=== PATIENT | female | born 1980 | race Caucasian/White ===

== ENCOUNTER 2016-11-07 11:30 | Inpatient (IN) | payer OTHER ==
[~2016-11-07] VITALS: Ht 162.6 cm; Wt 82.0 kg
[2016-11-07 13:11] LABS: EOSINOPHIL (%) 1.6 % (0-5); EOSINOPHIL COUNT 0.1 K/uL (0-0.3); HEMATOCRIT 39.8 % (36.0-46.0); IMMATURE GRANULOCYTE (%) 0.6 % (0.0-0.7); IMMATURE GRANULOCYTE COUNT 0.1 K/uL; INSTRUMENT ABS NEUTROPHIL CT 4.2 K/uL; LYMPHOCYTE COUNT 2.9 K/uL (1.0-2.8); MCH 28.6 PG (29.0-34.0); MCHC 31.9 G/DL (30.0-36.0); MCV 89.6 FL (83-99); MEAN PLAT.VOLUME 9.6 uM^3 (9.5-12.4); MONOCYTE (%) 9.3 % (3-12); MONOCYTE COUNT 0.7 K/uL (0-0.8); NEUTROPHIL COUNT 4.2 K/uL (1.8-6.4); PLATELET COUNT 312 K/uL (156-360); RBC DIS.WIDTH-CV 12.7 % (11.8-14.6); RBC DIS.WIDTH-SD 41.9 % (39-53); RED BLOOD COUNT 4.44 M/uL (3.80-5.20)
[2016-11-07 13:20] LABS: CHLORIDE 105 mEq/L (99-109); POTASSIUM 4.4 mEq/L (3.7-5.4); SODIUM 140 mEq/L (136-147)
[2016-11-07 13:22] LABS: GLUCOSE 106 mg/dL (70-99)
[2016-11-07 13:23] LABS: ANION GAP 9 MEQ/L (2-14)
[2016-11-07 13:24] LABS: TOTAL BILIRUBIN 0.2 mg/dL (0.0-1.0)
[2016-11-07 13:25] LABS: ALKALINE PHOSPHATASE 63 IU/L (3-129)
[2016-11-07 13:26] LABS: GFR ESTIMATE (CALCULATED) > 59 mL/min/
[2016-11-07 13:27] LABS: UREA NITROGEN (BUN) 22 mg/dL (9-23)
[2016-11-07 13:29] LABS: D-DIMER ELISA 0.41 mg/L FEU (< 0.57)
[2016-11-07 13:31] LABS: TROP-I INTERPRETATION NEGATIVE; TROPONIN-I < 0.01 ng/mL (0.0-0.30)
[2016-11-07 13:34] LABS: QUANTITATIVE HCG < 4.0 MIU/ML
[2016-11-07 15:42] LABS: ADD MIUA? YES; BILIRUBIN NEGATIVE; BLOOD NEGATIVE; COLOR YELLOW ((YELLOW)); GLUCOSE (STRIP) NEGATIVE; KETONES NEGATIVE; LEUKOCYTES SMALL; NITRITE NEGATIVE; PROTEIN (STRIP) 30; SPECIFIC GRAVITY 1.025 (1.000-1.030); UROBILINOGEN 0.2 MG/DL (0.2-1.0)
[2016-11-07] MEDS ORDERED: NUEDEXTA 20-101 EACH PO (15:48)
[2016-11-07] MEDS ORDERED: KLONOPIN1 MG PO ×2 (15:48→15:49)
[2016-11-07] MEDS ORDERED: MIRTAZAPINE15 MG PO (15:48)
[2016-11-07 15:49] LABS: BACTERIA 2+ /HPF; CALCIUM OXALATE CRYSTALS 4+ /HPF; EPITHELIAL CELLS 4+ /HPF; MUCUS TRACE /LPF; RED BLOOD CELLS 0-5 /HPF (0-5); UCUL ADDED? YES
[2016-11-07] MEDS ORDERED: NEURONTIN300 MG PO (15:49)
[2016-11-07] MEDS ORDERED: GABAPENTIN300 MG PO (15:49)
[2016-11-07] MEDS ORDERED: HYDROXYZINE HCL50 MG PO (15:49)
[2016-11-07] MEDS ORDERED: GABAPENTIN400 MG PO (15:49)
[2016-11-07] MEDS ORDERED: WELLBUTRIN XL150 MG PO (15:50)
[2016-11-07] MEDS ORDERED: LOVENOX30 MG/0.3 SC (15:51)
[2016-11-07] MEDS ORDERED: CYANOCOBAL1000 MCG/2 IM (15:51)
[2016-11-07] MEDS ORDERED: DIFLUCAN100 MG PO (15:52)
[2016-11-07] MEDS ORDERED: [UNRECOGNIZED DRUG - CODE] PO (15:52)
[2016-11-07] MEDS ORDERED: QUESTRAN POWDE378 GM PO (15:53)
[2016-11-07] MEDS ORDERED: PERCOCET 5/31 TABLET PO (15:53)
[2016-11-07] MEDS ORDERED: SKELAXIN800 MG PO (15:53)
[2016-11-07] MEDS ORDERED: AMPHOTERICIN PO (15:54)
[2016-11-07] MEDS ORDERED: DIFICID200 MG PO (15:54)
[2016-11-07] MEDS ORDERED: ARMOUR THYROID60 M1 PO (15:54)
[2016-11-07] MEDS ORDERED: PROAIR HFA8.5 GM IH (15:54)
[2016-11-07] MEDS ORDERED: MEPRON750 MG/5 M PO (15:55)
[2016-11-07 18:45] VITALS: BP 147/80
[2016-11-07 20:33] LABS: INTERNAL CONTROL VALID? YES
[2016-11-07 21:06] LABS: C DIFF TOXIN POSITIVE (NEGATIVE)
[2016-11-07 21:10] LABS: PROBE CHECK PASS
[2016-11-08] VITALS: BP 125/70
[2016-11-08 07:06] LABS: ANION GAP 10 MEQ/L (2-14); CHLORIDE 109 MEQ/L (99-109); GFR ESTIMATE (CALCULATED) > 59 mL/min/; GLUCOSE 82 mg/dL (70-99); POTASSIUM 3.8 MEQ/L (3.7-5.4); SAMPLE HEMOLYSIS CHECK 0; SAMPLE ICTERIC CHECK 0; SAMPLE LIPEMIA CHECK 0; SODIUM 141 MEQ/L (136-147); UREA NITROGEN (BUN) 9 mg/dL (9-23)
[2016-11-08 09:02] VITALS: BP 119/70
[2016-11-08 09:03] VITALS: BP 119/73
[2016-11-08 09:04] VITALS: BP 125/86
[2016-11-08 11:56] VITALS: BP 119/69
[2016-11-08 14:46] VITALS: BP 133/84
[2016-11-08 18:07] LABS: INTERNAL CONTROL VALID? YES
[2016-11-09 01:07] VITALS: BP 120/70
[2016-11-09 06:46] LABS: EOSINOPHIL (%) 3.5 % (0-5); EOSINOPHIL COUNT 0.2 K/uL (0-0.3); IMMATURE GRANULOCYTE (%) 0.5 % (0.0-0.7); INSTRUMENT ABS NEUTROPHIL CT 2.4 K/uL; LYMPHOCYTE COUNT 2.3 K/uL (1.0-2.8); MCH 28.4 PG (29.0-34.0); MCHC 30.6 G/DL (30.0-36.0); MCV 92.8 FL (83-99); MEAN PLAT.VOLUME 9.8 uM^3 (9.5-12.4); MONOCYTE (%) 10.5 % (3-12); MONOCYTE COUNT 0.6 K/uL (0-0.8); NEUTROPHIL (%) 42.8 % (45-76); NEUTROPHIL COUNT 2.4 K/uL (1.8-6.4); PLATELET COUNT 232 K/uL (156-360); RBC DIS.WIDTH-SD 44.1 % (39-53); RED BLOOD COUNT 3.88 M/uL (3.80-5.20); WHITE BLOOD COUNT 5.5 K/uL (4.1-10.2)
[2016-11-09 07:09] LABS: ANION GAP 8 MEQ/L (2-14); CHLORIDE 110 MEQ/L (99-109); GFR ESTIMATE (CALCULATED) > 59 mL/min/; GLUCOSE 76 mg/dL (70-99); MAGNESIUM 1.9 mg/dl (1.3-2.7); POTASSIUM 4.1 MEQ/L (3.7-5.4); SAMPLE HEMOLYSIS CHECK 0; SAMPLE ICTERIC CHECK 0; SAMPLE LIPEMIA CHECK 0; SODIUM 144 MEQ/L (136-147); UREA NITROGEN (BUN) 6 mg/dL (9-23)
[2016-11-09 07:48] VITALS: BP 116/67
[2016-11-09 15:20] VITALS: BP 127/76
[2016-11-09 22:54] VITALS: BP 116/66
[2016-11-10 06:36] LABS: HEMATOCRIT 34.8 % (36.0-46.0); MCH 29.3 PG (29.0-34.0); MCHC 32.8 G/DL (30.0-36.0); MCV 89.5 FL (83-99); MEAN PLAT.VOLUME 9.8 uM^3 (9.5-12.4); PLATELET COUNT 245 K/uL (156-360); RBC DIS.WIDTH-CV 12.9 % (11.8-14.6); RBC DIS.WIDTH-SD 42.4 % (39-53); RED BLOOD COUNT 3.89 M/uL (3.80-5.20); WHITE BLOOD COUNT 6.3 K/uL (4.1-10.2)
[2016-11-10 07:02] LABS: ANION GAP 9 MEQ/L (2-14); CHLORIDE 107 MEQ/L (99-109); GFR ESTIMATE (CALCULATED) > 59 mL/min/; GLUCOSE 81 mg/dL (70-99); POTASSIUM 3.6 MEQ/L (3.7-5.4); SAMPLE HEMOLYSIS CHECK 0; SAMPLE ICTERIC CHECK 0; SAMPLE LIPEMIA CHECK 0; SODIUM 141 MEQ/L (136-147); UREA NITROGEN (BUN) 7 mg/dL (9-23)
[2016-11-10 07:25] VITALS: BP 121/70
[2016-11-10 15:45] VITALS: BP 117/68
[2016-11-10 23:10] VITALS: BP 117/66
[2016-11-11 05:59] LABS: EOSINOPHIL (%) 2.7 % (0-5); EOSINOPHIL COUNT 0.2 K/uL (0-0.3); HEMATOCRIT 36.5 % (36.0-46.0); IMMATURE GRANULOCYTE (%) 0.4 % (0.0-0.7); INSTRUMENT ABS NEUTROPHIL CT 3.7 K/uL; LYMPHOCYTE COUNT 2.6 K/uL (1.0-2.8); MCH 29.8 PG (29.0-34.0); MCHC 33.2 G/DL (30.0-36.0); MCV 89.9 FL (83-99); MEAN PLAT.VOLUME 10.2 uM^3 (9.5-12.4); MONOCYTE (%) 10.2 % (3-12); MONOCYTE COUNT 0.8 K/uL (0-0.8); NEUTROPHIL (%) 50.6 % (45-76); NEUTROPHIL COUNT 3.7 K/uL (1.8-6.4); PLATELET COUNT 250 K/uL (156-360); RBC DIS.WIDTH-CV 12.9 % (11.8-14.6); RBC DIS.WIDTH-SD 42.3 % (39-53); RED BLOOD COUNT 4.06 M/uL (3.80-5.20); WHITE BLOOD COUNT 7.4 K/uL (4.1-10.2)
[2016-11-11 06:21] LABS: ANION GAP 13 MEQ/L (2-14); CHLORIDE 106 MEQ/L (99-109); GFR ESTIMATE (CALCULATED) > 59 mL/min/; GLUCOSE 79 mg/dL (70-99); POTASSIUM 3.9 MEQ/L (3.7-5.4); SAMPLE HEMOLYSIS CHECK 0; SAMPLE ICTERIC CHECK 0; SAMPLE LIPEMIA CHECK 0; SODIUM 142 MEQ/L (136-147); UREA NITROGEN (BUN) 13 mg/dL (9-23)
[2016-11-11 07:50] VITALS: BP 112/60
[2016-11-11 16:06] VITALS: BP 100/60
[2016-11-11 22:35] VITALS: BP 117/62
[2016-11-12 07:26] VITALS: BP 116/60
[2016-11-12] MEDS ORDERED: FLORASTOR250 MG PO (15:30)
[2016-11-12] MEDS ORDERED: DICYCLOMINE HCL10 MG PO (15:30)
[2016-11-12] MEDS ORDERED: VANCOCIN 250 M250 MG PO (15:33)
[2016-11-12 16:09] VITALS: BP 121/69
== END 2016-11-12 17:30 | disposition home or self-care (01) | DRG 372 ==
LOC: EME 11:30 → EDOF 16:40 → 5WEST 16:40 → EDOF 16:40 → 5WEST 18:14 → 5EAST 11-08 10:09 → 5WEST 11-08 10:09 → 5EAST 11-08 14:33
PROVIDERS: Emergency Medicine; Hospitalist; Internal Medicine; Physician Assistant
DX: A04.7 Enterocolitis due to Clostridium difficile (principal); E86.0 Dehydration; R82.90 Unspecified abnormal findings in urine; M79.7 Fibromyalgia; F32.9 Major depressive disorder, single episode, unspecified; K58.0 Irritable bowel syndrome with diarrhea; A69.20 Lyme disease, unspecified; D81.9 Combined immunodeficiency, unspecified; F43.10 Post-traumatic stress disorder, unspecified; Z68.31 Body mass index [BMI] 31.0-31.9, adult; Z79.899 Other long term (current) drug therapy; Z72.0 Tobacco use
CPT/HCPCS: 71275; 74177; 80048; 80053; 81003; 82272; 83630; 83735; 84100; 84484; 84702; 85025; 85027; 85379; 87040; 87086; 87493; 87506; 93005; 99202; 99281; 99285; G0378; J1650; J2405; J7030; Q0177; S0030

== ENCOUNTER 2016-12-03 14:27 | Emergency (ER) | payer OTHER ==
[~2016-12-03] VITALS: Ht 167.6 cm; Wt 77.2 kg
[~2016-12-03 14:27] MED LIST: AMPHOTERICIN PO; ARMOUR THYROID60 M1 PO; CYANOCOBAL1000 MCG/2 IM; DICYCLOMINE HCL10 MG PO; DIFICID200 MG PO; DIFLUCAN100 MG PO; FLORASTOR250 MG PO; GABAPENTIN300 MG PO; GABAPENTIN400 MG PO; HYDROXYZINE HCL50 MG PO; KLONOPIN1 MG PO; LOVENOX30 MG/0.3 SC; MEPRON750 MG/5 M PO; MIRTAZAPINE15 MG PO; NEURONTIN300 MG PO; NUEDEXTA 20-101 EACH PO; PERCOCET 5/31 TABLET PO; PROAIR HFA8.5 GM IH; QUESTRAN POWDE378 GM PO; SKELAXIN800 MG PO; VANCOCIN 250 M250 MG PO; WELLBUTRIN XL150 MG PO; [UNRECOGNIZED DRUG - CODE] PO
[2016-12-03 16:23] LABS: HEMATOCRIT 39.9 % (36.0-46.0); MCH 28.6 PG (29.0-34.0); MCHC 31.6 G/DL (30.0-36.0); MCV 90.5 FL (83-99); MEAN PLAT.VOLUME 9.1 uM^3 (9.5-12.4); PLATELET COUNT 321 K/uL (156-360); RBC DIS.WIDTH-CV 13.2 % (11.8-14.6); RBC DIS.WIDTH-SD 43.8 % (39-53); RED BLOOD COUNT 4.41 M/uL (3.80-5.20); WHITE BLOOD COUNT 9.1 K/uL (4.1-10.2)
[2016-12-03 16:37] LABS: CHLORIDE 106 mEq/L (99-109); POTASSIUM 3.6 mEq/L (3.7-5.4); SODIUM 142 mEq/L (136-147)
[2016-12-03 16:39] LABS: GLUCOSE 119 mg/dL (70-99)
[2016-12-03 16:40] LABS: ANION GAP 17 MEQ/L (2-14)
[2016-12-03 16:41] LABS: TOTAL BILIRUBIN 0.2 mg/dL (0.0-1.0)
[2016-12-03 16:43] LABS: ALKALINE PHOSPHATASE 63 IU/L (3-129); GFR ESTIMATE (CALCULATED) > 59 mL/min/
[2016-12-03 16:44] LABS: UREA NITROGEN (BUN) 12 mg/dL (9-23)
[2016-12-03 16:55] LABS: QUANTITATIVE HCG < 4.0 MIU/ML
[2016-12-03 16:58] LABS: ADD MIUA? YES; BILIRUBIN NEGATIVE; BLOOD NEGATIVE; COLOR YELLOW ((YELLOW)); GLUCOSE (STRIP) NEGATIVE; KETONES NEGATIVE; LEUKOCYTES NEGATIVE; NITRITE NEGATIVE; PROTEIN (STRIP) 30; SPECIFIC GRAVITY 1.018 (1.000-1.030); UROBILINOGEN 0.2 MG/DL (0.2-1.0)
[2016-12-03 17:04] LABS: BACTERIA RARE /HPF; CALCIUM OXALATE CRYSTALS 3+ /HPF; EPITHELIAL CELLS 1+ /HPF; MUCUS 2+ /LPF; RED BLOOD CELLS 0-5 /HPF (0-5); UCUL ADDED? NO; WHITE BLOOD CELLS 0-5 /HPF (0-5)
[2016-12-03 20:42] LABS: C DIFF TOXIN NEGATIVE (NEGATIVE)
[2016-12-03 20:43] LABS: PROBE CHECK PASS; SPECIMEN PROCESSING CONTROL PASS
[2016-12-03 21:57] VITALS: BP 140/86
== END 2016-12-03 22:10 | disposition home or self-care (01) ==
LOC: EME 14:27
PROVIDERS: Physician Assistant
DX: R19.7 Diarrhea, unspecified (principal); K64.9 Unspecified hemorrhoids; K21.9 Gastro-esophageal reflux disease without esophagitis; J45.909 Unspecified asthma, uncomplicated; M79.7 Fibromyalgia; G62.9 Polyneuropathy, unspecified; F41.9 Anxiety disorder, unspecified; F32.9 Major depressive disorder, single episode, unspecified; Z87.442 Personal history of urinary calculi
CPT/HCPCS: 80053; 81003; 84702; 85027; 87045; 87046; 87177; 87186; 87493; 87506; 99281; 99284; J7030